=== PATIENT | female | born 1985 | race Caucasian/White ===

== ENCOUNTER → 2017-06-07 | Outpatient (CLI) | payer BC ==
[2017-06-07 12:56] LABS: PREG INTERNAL NEGATIVE QC NEG CLEAR BACKGROUND; PREG INTERNAL POSITIVE QC POS CONTROL LINE
[2017-06-07 13:03] LABS: HEMATOCRIT 34.5 % (37-47); MEAN CELL VOLUME 85.4 fL (80-100); MEAN CORPUSCULAR HEMOGLOBIN 28.5 pg (25-34); MEAN CORPUSCULAR HGB CONC 33.3 g/dl (32-36); MEAN PLATELET VOLUME 9.6 fL (7.4-10.4); PLATELET COUNT 336 K/uL (130-400); RED BLOOD COUNT 4.04 M/uL (4.2-5.4); WHITE BLOOD COUNT 10.27 K/uL (4.8-10.8)
[2017-06-07 13:24] LABS: ALT/SGPT 15 U/L (12-78); AST/SGOT 10 U/L (15-37); BLOOD UREA NITROGEN 12 mg/dl (7-18); BUN/CREATININE RATIO 18.2 (10-20); CALCIUM 9.1 mg/dl (8.5-10.1); CARBON DIOXIDE 23 mmol/L (21-32); CHLORIDE 107 mmol/L (98-107); CREATININE 0.66 mg/dl (0.60-1.20); GLUCOSE 103 mg/dl (70-99); POTASSIUM 4.1 mmol/L (3.5-5.1); SODIUM 139 mmol/L (136-145)
[2017-06-07 13:28] LABS: ALB/GLOB RATIO 1.1 (0.9-2); ALKALINE PHOSPHATASE 48 U/L (45-117); C-REACTIVE PROTEIN 1.32 mg/dl (0-0.29); RHEUMATOID FACTOR < 10.0 U/mL (0-15)
[2017-06-07 14:33] LABS: LYME DISEASE AB IGG NEG (NEG); LYME DISEASE AB IGM NEG (NEG)
[2017-06-12 11:43] LABS: ANA TITER 1:40 TITER (<1:40)
== END | disposition home or self-care (01) ==
LOC: C.LABBFT 09:20
PROVIDERS: ATTEND Physician Assistant Medical
DX: M25.50 Pain in unspecified joint (principal)

== ENCOUNTER → 2017-06-10 | Outpatient (CLI) | payer BC ==
[2017-06-10 18:03] LABS: FERRITIN 40.3 ng/ml (8.0-388.0)
== END | disposition home or self-care (01) ==
LOC: C.LABBFT 15:18
PROVIDERS: ATTEND Physician Assistant Medical
DX: D64.9 Anemia, unspecified (principal)

== ENCOUNTER → 2017-06-18 | Outpatient (CLI) | payer BC ==
--- NOTE | 2017-06-18 10:03 | DIAGNOSTIC IMAGING REPORT ---
LEFT HAND 3 VIEWS CLINICAL HISTORY: Joint pain. FINDINGS: 3 views of left hand are obtained. No prior studies are available for comparison at the time of dictation. The skeletal structures are well mineralized. No fracture is seen. The joint spaces of the hand are well-maintained. No erosive change is seen. The overlying soft tissues are within normal limits. IMPRESSION: Unremarkable radiographic assessment of the left hand. Electronically signed by: Travis Perez M.D. 06/18/2017 10:01 AM Dictated Date/Time: 06/18/2017 10:00 AM
--- NOTE | 2017-06-18 10:03 | DIAGNOSTIC IMAGING REPORT ---
R HAND MIN 3 VIEWS ROUTINE CLINICAL HISTORY: Joint pain. COMPARISON: None FINDINGS: Alignment of the right hand is anatomic. No fracture or suspicious osseous lesion is present. Joint spaces are preserved. No erosions are identified on this exam. Carpal bones are intact. No soft tissue calcifications are present. IMPRESSION: 1. Unremarkable right hand radiographs. 2. No radiographic evidence of an erosive/inflammatory arthropathy. Electronically signed by: Sb Rivas M.D. 06/18/2017 10:01 AM Dictated Date/Time: 06/18/2017 10:01 AM
== END | disposition home or self-care (01) ==
LOC: C.RAD1850 09:37
PROVIDERS: ATTEND Internal Medicine Rheumatology
DX: M25.541 Pain in joints of right hand (principal); M25.542 Pain in joints of left hand

== ENCOUNTER → 2017-08-31 | Outpatient (CLI) | payer BC ==
[~2017-08-31] MED LIST: ADAL40KI SC; CALC625T13 PO; DROS1TAB21 PO; MULT-506 PO; PRLSR20 PO; SERT-234 PO; ZOLP5TAB6 PO
[2017-08-31 11:04] LABS: BASO % 0.3 %; BASO ABS # 0.03 K/uL (0-0.2); EOS % 1.8 %; EOS ABS # 0.19 K/uL (0-0.5); HEMATOCRIT 37.9 % (37-47); HEMOGLOBIN 12.6 g/dL (12.0-16.0); IG# 0.09 K/uL (0.00-0.02); LYMPH % 39.4 %; LYMPH ABS # 4.09 K/uL (1.2-3.4); MEAN CELL VOLUME 85.7 fL (80-100); MEAN CORPUSCULAR HEMOGLOBIN 28.5 pg (25-34); MEAN CORPUSCULAR HGB CONC 33.2 g/dl (32-36); MEAN PLATELET VOLUME 9.7 fL (7.4-10.4); MONO % 4.1 %; MONO ABS # 0.43 K/uL (0.11-0.59); NEUT % 53.5 %; NEUT ABS # 5.56 K/uL (1.4-6.5); PLATELET COUNT 307 K/uL (130-400); RED CELL DISTRIBUTION WIDTH CV 14.1 % (11.5-14.5); WHITE BLOOD COUNT 10.39 K/uL (4.8-10.8)
[2017-08-31 11:17] LABS: ALBUMIN 3.8 gm/dl (3.4-5.0); ALT/SGPT 14 U/L (12-78); AST/SGOT 10 U/L (15-37)
[2017-08-31 11:20] LABS: ALKALINE PHOSPHATASE 49 U/L (45-117); TOTAL PROTEIN 7.3 gm/dl (6.4-8.2)
== END | disposition home or self-care (01) ==
LOC: C.LABBC 09:29
PROVIDERS: ATTEND Internal Medicine Rheumatology
DX: K21.9 Gastro-esophageal reflux disease without esophagitis (principal); M06.4 Inflammatory polyarthropathy; Z79.52 Long term (current) use of systemic steroids; Z79.899 Other long term (current) drug therapy

== ENCOUNTER → 2018-03-31 | Day surgery (SDC) | payer OTHER ==
[2018-03-27 15:55] VITALS: Ht 157.5 cm; Wt 50.5 kg
[~2018-03-31] VITALS: Ht 157.5 cm; Wt 50.5 kg
[~2018-03-31] MED LIST changes: +LIDOCAINE HCL 2% 2 ML VIAL (20MG/ML) ONE; +PROPOFOL IV EMULSION 10 MG/ML 20 ML VIAL ONE; +SODIUM CHLORIDE 0.9% 500ML 500 ML IV ONE
--- NOTE | 2018-03-31 11:38 | Endo History and Physical ---
History & Physical Date of Service: Mar 31, 2018. Chief Complaint: Dysphagia Referring Physician: Laila Rivas History of Present Illness 32 yo CF who presents for EGD secondary to dysphagia. Past Surgical History Hx Cardiac Surgery: No Hx Internal Defibrillator: No Hx Pacemaker: No Hx Abdominal Surgery: Yes (APPY) Hx of Implantable Prosthesis: No Hx Post-Op Nausea and Vomiting: No Hx Cancer Surgery: No Hx Thoracic Surgery: No Hx Orthopedic: No Hx Urinary Tract Surgery: No Family History None Social History Smoking Status: Never Smoker Hx Substance Use: No Hx Alcohol Use: Yes (SOCIALLY) Allergies Coded Allergies: Penicillins (Verified Allergy, Intermediate, RASH, 03/27/18) Current Medications Reported Home Medications Medications Dose Route/Sig Max Daily Dose Days Date Category Zolpidem Tartrate 5 Mg Tab 1 Tab PO HS PRN 03/27/18 Reported Zoloft (Sertraline HCl) 100 Mg Tab 100 Mg PO QAM 03/27/18 Reported Prilosec (Omeprazole) 20 Mg Capcr 20 Mg PO DAILY 03/27/18 Reported Multivitamin (Multivitamins) Tab 1 Tab PO DAILY 03/27/18 Reported Humira Pen (Adalimumab) 40 Mg/0.8 Ml Kit 40 Mg SC EVERY OTHER WEEK 03/27/18 Reported Gianvi (Drospirenone-Ethinyl Estradiol) 1 Tab Tab 1 Tab PO DAILY 03/27/18 Reported Fiber Tabs (Calcium Polycarbophil) 625 Mg Tab 1 Tab PO DAILY 03/27/18 Reported Vital Signs Weight (Kilograms): 50.45 Height (Feet): 5 Height (Inches): 2 Date Time Temp Pulse Resp B/P (MAP) Pulse Ox O2 Delivery O2 Flow Rate FiO2 03/31/18 11:15 37.1 113 20 117/98 (104) 99 Room Air Physical Exam General Appearance: WD/WN, no apparent distress Respiratory/Chest: Auscultation: breath sounds normal Cardiovascular: Heart Auscultation: RRR Abdomen: Bowel Sounds: normal Inspection & Palpation: soft, non-distended, no tenderness, guarding & rebound Assessment and Plan Assessment: 32 yo CF who presents for EGD secondary to dysphagia. Plan: Proceed with EGD.
--- NOTE | 2018-03-31 12:11 | Discharge Instructions ---
Endoscopy Patient Instructions Date / Procedure(s) Performed Mar 31, 2018. EGD Allergy Information Coded Allergies: Penicillins (Verified Allergy, Intermediate, RASH, 03/27/18) Discharge Date / Findings Mar 31, 2018. Gastric ulcers s/p biopsy Mid-esophageal biopsies Esophageal stenosis s/p dilation Medication Instructions 1) Increase Omeprazole to 20mg by mouth twice daily 2) OK to resume all medications today as prescribed Reported Home Medications Medications Dose Route/Sig Max Daily Dose Days Date Category Zolpidem Tartrate 5 Mg Tab 1 Tab PO HS PRN 03/27/18 Reported Zoloft (Sertraline HCl) 100 Mg Tab 100 Mg PO QAM 03/27/18 Reported Prilosec (Omeprazole) 20 Mg Capcr 20 Mg PO DAILY 03/27/18 Reported Multivitamin (Multivitamins) Tab 1 Tab PO DAILY 03/27/18 Reported Humira Pen (Adalimumab) 40 Mg/0.8 Ml Kit 40 Mg SC EVERY OTHER WEEK 03/27/18 Reported Gianvi (Drospirenone-Ethinyl Estradiol) 1 Tab Tab 1 Tab PO DAILY 03/27/18 Reported Fiber Tabs (Calcium Polycarbophil) 625 Mg Tab 1 Tab PO DAILY 03/27/18 Reported Provider Instructions Activity Restrictions - No exercising or heavy lifting for 24 hours. - Do not drink alcohol the day of the procedure. - Do not drive a car or operate machinery until the day after the procedure. - Do not make any important decisions or sign important papers in 24 hours after the procedure. Following Day: - Return to full activity which may include returning to work/school. Diet Start your diet with liquids and light foods (jello, soup, juice, toast). Then eat your usual diet if not nauseated. Treatment For Common After Affects For mild abdominal pain, bloating, or excessive gas: - Rest - Eat lightly - Lie on right side Follow-Up Information Follow-up with Laila Rivas as scheduled Anesthesia Information What You Should Know You have had a procedure that required some medicine to reduce anxiety and discomfort. This treatment is called moderate sedation. After receiving the treatment, you may be sleepy, but you will be able to breathe on your own. The effects of the treatment may last for several hours. Follow these instructions along with Activity/Diet recommendations noted above: * Do NOT do anything where dizziness or clumsiness would be dangerous. * Rest quietly at home today, then you can be up and about tomorrow. * Have a responsible person stay with you the rest of today. * You may have had an I.V. today. If so, you may take the dressing off later today. Recommendations Call your doctor if: * Trouble breathing * Continuous vomiting for more than 24 hours * Temperature above 101 degrees * Severe abdominal pain or bloating * Pain not relieved by pain medicine ordered * There is increased drainage or redness from any incision * A large amount of rectal bleeding greater than 2-3 tablespoons. (If you had a polyp/s removed or have hemorrhoids, a small amount of blood - from the rectum is to be expected.) * You have any unanswered questions or concerns. IN THE EVENT OF A SERIOUS EMERGENCY, GO TO THE NEAREST EMERGENCY ROOM Your discharge instructions were prepared by provider Lb Nascimento. Patient Instructions Signature Page Angel Amanda Patient (or Guardian) Signature/Date: I have read and understand the instructions given to me by my caregivers. Caregiver/RN/Doctor Signature/Date: The above-named patient and/or guardian has received patient instructions on this date. + Original Patient Signature Page (only) stays with chart. Please make copy for patient.
[2018-03-31 12:32] VITALS: BP 123/91; PULSE 78; O2SAT 100
--- NOTE | 2018-03-31 13:05 | GI REPORT ---
Patient Name: Angel Amanda Procedure Date: 03/31/2018 11:42 AM Date of : 1985 Admit Type: Outpatient Age: 32 Gender: Female Attending MD: Lb Nascimento DO Procedure: Upper GI endoscopy Providers: Lb Nascimento DO Referring MD: Carol Martinez Indications: Dysphagia Medicines: Monitored Anesthesia Care Complications: No immediate complications. Estimated Blood Loss: Estimated blood loss: none. Procedure: Pre-Anesthesia Assessment: - Prior to the procedure, a History and Physical was performed, and patient medications and allergies were reviewed. The patient's tolerance of previous anesthesia was also reviewed. The risks and benefits of the procedure and the sedation options and risks were discussed with the patient. All questions were answered, and informed consent was obtained. Prior Anticoagulants: The patient has taken no previous anticoagulant or antiplatelet agents. ASA Grade Assessment: II - A patient with mild systemic disease. After reviewing the risks and benefits, the patient was deemed in satisfactory condition to undergo the procedure. After obtaining informed consent, the endoscope was passed under direct vision. Throughout the procedure, the patient's blood pressure, pulse, and oxygen saturations were monitored continuously. The scope was introduced through the mouth, and advanced to the second part of duodenum. The upper GI endoscopy was accomplished without difficulty. The patient tolerated the procedure well. Findings: Moderately severe esophagitis with no bleeding was found. Biopsies were taken with a cold forceps for histology in the mid-esophagus to evaluate for Eosinophilic esophagitis. One benign-appearing, intrinsic stenosis was found 36 cm from the incisors. This stenosis was moderately severe and measured 1.4 cm (inner diameter) x 1 cm (in length). The stenosis was traversed. A TTS dilator was passed through the scope. Dilation with an 18-19-20 mm balloon dilator was performed to 18 mm. Three non-bleeding cratered gastric ulcers with no stigmata of bleeding were found in the gastric antrum. The largest lesion was 4 mm in largest dimension. Biopsies were taken with a cold forceps for Helicobacter pylori testing. The examined duodenum was normal. Impression: - Moderately severe reflux esophagitis. Biopsied. - Benign-appearing esophageal stenosis. Dilated. - Non-bleeding gastric ulcers with no stigmata of bleeding. Biopsied. - Normal examined duodenum. Recommendation: - Resume previous diet. - Use Prilosec (omeprazole) 20 mg PO BID. - Await pathology results. - Return to primary care physician as previously scheduled. Lb Nascimento, DO 03/31/2018 1:05:09 PM This report has been signed electronically. Note Initiated On: 03/31/2018 11:42 AM Number of Addenda: 0 I attest to the content of the Intraoperative Record and orders documented therein, exceptions below {[id number]}
--- NOTE | 2018-03-31 14:26 | Anesthesiology Progress Note ---
Anesthesia Post Op Note Date & Time Mar 31, 2018 at 14:26 Vital Signs Pain Intensity: 0 Vital Signs Past 12 Hours Date Time Temp Pulse Resp B/P (MAP) Pulse Ox O2 Delivery O2 Flow Rate FiO2 03/31/18 12:32 78 18 123/91 (102) 100 Room Air 03/31/18 12:17 80 18 115/84 (94) 100 Room Air 03/31/18 12:02 97 16 107/65 (79) 98 Room Air 03/31/18 11:15 37.1 113 20 117/98 (104) 99 Room Air Notes Mental Status: alert / awake / arousable, participated in evaluation Pt Amnestic to Procedure: Yes Nausea / Vomiting: adequately controlled Pain: adequately controlled Airway Patency, RR, SpO2: stable & adequate BP & HR: stable & adequate Hydration State: stable & adequate Anesthetic Complications: no major complications apparent
== END | disposition home or self-care (01) ==
LOC: C.GI 10:44
PROVIDERS: ATTEND Internal Medicine
DX: R13.10 Dysphagia, unspecified (principal); K22.2 Esophageal obstruction; K25.9 Gastric ulcer, unspecified as acute or chronic, without hemorrhage or perforation; K21.9 Gastro-esophageal reflux disease without esophagitis; M06.9 Rheumatoid arthritis, unspecified; F41.9 Anxiety disorder, unspecified; Z88.0 Allergy status to penicillin; Z79.899 Other long term (current) drug therapy

== ENCOUNTER 2023-02-28 13:15 | Inpatient (IN) ==
[2023-02-28] MEDS ORDERED: SODIUM CHLORIDE 0.9% 1000ML 1,000 ML IV STA (13:26)
[2023-02-28] MEDS ORDERED: MoRPHine SULFATE 2 MG/ML CARP IV PRN (13:47)
[2023-02-28] MEDS ORDERED: MoRPHine SULFATE 2 MG/ML CARP IV STA (13:47)
--- NOTE | 2023-02-28 14:04 | Emergency Department Note ---
ED Provider Note History of Present Illness Chief Complaint: Flu Like Symptoms Stated Complaint: STOMACH BUG,VOMITING,NAUSEA, Time Seen by Provider: 02/28/23 13:24 This is a 37-year-old female with a history of eosinophilic esophagitis, r heumatoid arthritis, accompanied by her , who presents to the emergency department with vomiting initially, central back pain, persistent diarrhea, fever, concern for dehydration, and pain in her upper abdomen. 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 She started vomiting initially and then developed diarrhea. Yesterday she had a temperature of 101 and she also felt like she had a fever this morning. Her diarrhea is green, no blood, she is probably having 20 episodes per day. She was initially having some diffuse abdominal pain but this has become more constant in the epigastric and right upper quadrant. She tried taking her pantoprazole and Carafate but did not have much relief. She tried to eat some food last night and developed severe abdominal pain in this region. She visited a local urgent care yesterday who prescribed her some Zofran which helped with the vomiting (has not had any vomiting today) but the diarrhea and abdominal pain persists. She traveled to [place] last week, no out of the country travel. Denies any sick contacts. Does not have any dysuria, hematuria, frequency, urgency. Does have a history of a kidney infection in the past which was on her mind today. Denies any upper respiratory symptoms, tested negative for COVID and flu at urgent care yesterday. History of appendectomy and . Still has her gallbladder. Her father had a cholecystectomy in the past. Generally takes Enbrel for rheumatoid arthritis, did not take it this week. Last menstrual period was 2 weeks ago. Tested negative for yesterday at urgent [facility] Medications Medication Instructions Recorded Confirmed Type multivitamin 1 tab PO QPM 06/11/18 02/28/23 History etanercept 25 mg (1 mL) 50 mg subcut .Thursdays02/23/20 02/28/23 History subcutaneous powder for solution (Enbrel) rizatriptan 10 mg disintegrating 10 mg PO Q2H PRN migraine headache 09/16/20 02/28/23 Rx tablet (Maxalt-PCT) #9 tabs omeprazole 20 mg capsule,delayed 20 mg PO BID #180 caps 05/01/22 02/28/23 Rx release sucralfate 1 gram tablet 1 g PO QID PRN STOMACH IRRITATION 07/13/22 02/28/23 History famotidine 20 mg tablet 20 mg PO BID #180 tabs 10/25/22 02/28/23 Rx miscellaneous medical supply #60 doses 11/19/22 01/08/23 Rx budesonide 9 mg capsule,extended 0 mg PO BID 01/01/23 02/28/23 History release drospirenone 3 mg-ethinyl 1 tab PO QPM 01/01/23 02/28/23 History estradiol 0.02 mg tablet lorazepam 0.5 mg tablet 0.5 - 1 mg PO UD PRN FLIGHT ANXIETY 01/01/23 02/28/23 History sertraline 100 mg tablet 150 mg PO QAM 01/01/23 02/28/23 History trazodone 50 mg tablet 50 - 100 mg PO HS PRN Sleep 01/01/23 02/28/23 History Allergies Allergy/AdvReac Type Severity Reaction Status Date / Time nickel Allergy Unknown Rash Verified 02/28/23 17:15 Past Med/Surg History Medical History Anxiety Chronic migraine Eosinophilic esophagitis Esophageal stricture GERD (gastroesophageal reflux disease) History of COVID-19 04/2022- FEVER, COUGH, RUNNY NOSE, JOINT PAIN, BACK PAIN, NO HOSPITALIZATION, NO CURRENT ISSUES HLA B27 (HLA B27 positive) Hx of gastric ulcer Seronegative polyarthritis Surgical History Family history of reaction to anesthesia MOTHER-NAUSEA History of appendectomy History of section X 1 History of colonoscopy History of esophagogastroduodenoscopy (EGD) History of tooth extraction wisdom teeth Family History Aunt Skin cancer Uncle Skin cancer Father Eosinophilic esophagitis Other Family history of diabetes mellitus in father Denies family history of Ovarian cancer Prostate cancer Myocardial infarction Breast cancer Colorectal cancer Social History Smoking Status: Never smoker Second Hand Exposure: No; Do You Dip or Chew Tobacco: No; Tobacco Cessation Education Requested by Patient: No Hx Alcohol Use: Yes Alcohol type: wine Hx Substance Use: No Preferred Language: Honduran Communication Ability: Effective Visual Impairment: No Limitations Hearing Ability: Normal 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 Shift Required: No Beliefs That Will Affect Care: None marital status: Current Living Situation: Spouse and Family Current Living Situation Comment: and children current occupational status: employed 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 Other Information That Helps Us Care for You: No Feels Safe at Home: Yes Safety Concerns: Feels Safe At This Time Childhood Exposure to Second-Hand Smoke: No Diet: regular caffeine: Yes Dental Care, Regularly: Yes Physical Activity Frequency: 3-4 Times per Week Seatbelt Use: always Sunscreen Use: Yes Assistive Devices: None Physical Exam Vital Signs Vital Signs - 24 hr 02/28/23 13:19 02/28/23 14:16 02/28/23 15:52 Temperature 97.2 F L Temperature Source Temporal Artery Scan Pulse Rate 119 H Pulse Rate [Apical] 100 H Pulse Rhythm Regular Respiratory Rate 18 18 18 Respiratory Effort / Characteristics Non-Labored Respiratory Depth Normal Blood Pressure 141/92 H Blood Pressure [Right Arm] 125/87 Blood Pressure Mean 108 Blood Pressure Mean [Right Arm] 99 Pulse Oximetry 98 98 100 Oxygen Delivery Method Room Air Room Air Sepsis Recent Fever Within 48 Hours No Sepsis New/Unexplained Change in Mental Status N/A Sepsis Action Taken by Nursing No Action Required 02/28/23 16:06 Temperature Temperature Source Pulse Rate 96 H Pulse Rate [Apical] Pulse Rhythm Respiratory Rate Respiratory Effort / Characteristics Respiratory Depth Blood Pressure Blood Pressure [Right Arm] Blood Pressure Mean Blood Pressure Mean [Right Arm] Pulse Oximetry Oxygen Delivery Method Sepsis Recent Fever Within 48 Hours Sepsis New/Unexplained Change in Mental Status Sepsis Action Taken by Nursing CONSTITUTIONAL: Well developed, well nourished, mildly uncomfortable, nontoxic, otherwise pleasant HEAD: Normocephalic, atraumatic. EYES: conjunctivae normal, extraocular muscles intact. No scleral icterus ENMT: External ears normal. Nose with normal external appearance, no congestion. Oral mucous membranes somewhat dry. Oropharynx normal. NECK: Full active range of motion. LYMPHATIC: No cervical adenopathy RESPIRATORY: Breathing unlabored and symmetric. Lungs clear to auscultation bilaterally. No wheeze, rales, or rhonchi. CARDIOVASCULAR: Tachycardic rate and regular rhythm. No murmurs, rubs, or gallops. ABDOMEN: Hyperactive bowel sounds. Abdomen is soft. There is some tenderness to light touch in the right upper quadrant. There is tenderness in the epigastric, right upper quadrant, and right lower quadrants with deeper p alpation. Positive Patino sign. No CVA tenderness bilaterally. MUSCULOSKELETAL: Moves all extremities at all joints without pain or difficulty. No cyanosis or edema SKIN: [place], warm, dry. No rash, no jaundice NEUROLOGIC: Awake, alert, oriented. Gaze is conjugate. Face symmetric, speech normal. Moves head and all four extremities spontaneously. PSYCHIATRIC: Appropriate. Normal affect Course Administered Medications Lactated Ringer's (Lr) 1,000 mls @ 125 mls/hr IV .Q8H SUZANNE Stop: 03/30/23 19:59 Last Admin: 02/28/23 21:36 Dose: 125 mls/hr Documented By: EKF Acetaminophen (Ofirmev) 1,000 mg in 100 mls @ 400 mls/hr IV Q8H PRN PRN Reason: Pain Stop: 03/03/23 19:55 Last Infusion: 02/28/23 21:51 Dose: 0 mls/hr Documented By: Admin: 02/28/23 21:36 Dose: 400 mls/hr Documented By: EKF Miscellaneous (Budesonide~Order Awaiting Action) 1 each N/A QS SUZANNE Stop: 03/30/23 21:44 Last Admin: 02/28/23 21:44 Dose: Not Given Documented By: EKF Miscellaneous (Oral Contraceptive~Order Awaiting Action) 1 each N/A QS SUZANNE Stop: 03/30/23 21:44 Last Admin: 02/28/23 21:44 Dose: Not Given Documented By: EKF Miscellaneous (Enbrel~Order Awaiting Action) 1 each N/A QS SUZANNE Stop: 03/30/23 21:59 Last Admin: 02/28/23 23:06 Dose: Not Given Documented By: Admin: 02/28/23 22:03 Dose: Not Given Documented By: EKF Morphine Sulfate (Morphine Sulfate 2 Mg/Ml Carp) 2 mg IV NOW PRN PRN Reason: Pain Stop: 03/14/23 13:46 Last Admin: 02/28/23 17:26 Dose: 2 mg Documented By: Discontinued Medications Sodium Chloride (Nss 1000ml) 1,000 mls @ 999 mls/hr IV .Q1H1M STA Stop: 02/28/23 14:26 Last Infusion: 02/28/23 15:08 Dose: 0 mls/hr Documented By: Admin: 02/28/23 14:06 Dose: 999 mls/hr Documented By: GEOVANI Sodium Chloride (Nss 1000ml) 1,000 mls @ 999 mls/hr IV .Q1H1M ONE Stop: 02/28/23 17:05 Last Infusion: 02/28/23 17:54 Dose: 0 mls/hr Documented By: Admin: 02/28/23 16:42 Dose: 999 mls/hr Documented By: Ceftriaxone Sodium (Rocephin) 2,000 mg in 70 mls @ 140 mls/hr IV NOW STA Stop: 02/28/23 20:02 Last Infusion: 02/28/23 20:16 Dose: 0 mls/hr Documented By: Admin: 02/28/23 19:45 Dose: 140 mls/hr Documented By: AARON Ioversol (Optiray 320 100ml) 92 ml IV ONCE ONE Stop: 02/28/23 15:38 Last Admin: 02/28/23 15:38 Dose: 92 ml Documented By: SHIRIN Morphine Sulfate (Morphine Sulfate 2 Mg/Ml Carp) 2 mg IV NOW STA Stop: 02/28/23 13:48 Last Admin: 02/28/23 14:06 Dose: 2 mg Documented By: GEOVANI Medical Decision Making Differential Diagnosis Cholecystitis, cholelithiasis, choledocholithiasis, pancreatitis, gastric ulcer, gastritis, perforation, , gastroenteritis, diverticulitis, small bowel obstruction, mesenteric adenitis, C. difficile, dehydration, electrolyte imbalance, UTI, pyelonephritis, among other pathology Medical Records Attestation: I reviewed the patient's medical records. Laboratory Data 02/28/23 14:05 02/28/23 14:05 Lab Results 02/28/23 02/28/23 02/28/23 Range/Units 14:00 14:05 14:05 WBC 4.90 (4.8-10.8) K/ul RBC 4.85 (4.20-5.40) M/uL Hgb 13.7 (12.0-16.0) g/dl Hct 40.8 (37.0-47.0) % MCV 84.1 (80.0-100.0) fL MCH 28.2 (25.0-34.0) pg MCHC 33.6 (32.0-36.0) g/dL RDW Std Deviation 42.4 (36.4-46.3) fL RDW Coeff of Ravinder 13.7 (11.5-14.5) % Plt Count 198 (130-400) K/uL MPV 9.7 (9.4-12.4) fL Immature Gran % (Auto) 0.4 % Neut % (Auto) 52.1 % Lymph % (Auto) 34.7 % Garvin % (Auto) 10.2 % Eos % (Auto) 2.4 % Baso % (Auto) 0.2 % Neut # (Auto) 2.55 (1.40-6.50) K/uL Lymph # (Auto) 1.70 (1.2-3.4) K/uL Garvin # (Auto) 0.50 (0.11-0.59) K/uL Eos # (Auto) 0.12 (0-0.50) K/uL Baso # (Auto) 0.01 (0-0.2) K/uL Immature Gran # (Auto) 0.02 (0.01-0.20) K/uL Sodium 133 L (136-145) mmol/L Potassium 3.5 (3.5-5.1) mmol/L Chloride 103 (98-107) mmol/L Carbon Dioxide 19 L (21-32) mmol/L Anion Gap 11 (3-11) BUN 10 (6-23) mg/dl Creatinine 0.76 (0.6-1.2) mg/dl Est Cr Clr Drug Dosing 81.7 ml/min Est GFR ( Amer) 117.8 ml/min Est GFR (Non-Af Amer) 101.6 ml/min BUN/Creatinine Ratio 13.2 (10-20) Glucose 99 (70-99(Fasting)) mg/dl Calcium 8.9 (8.6-10.3) mg/dl Total Bilirubin 0.3 (0.2-1.0) mg/dl AST 17 (13-39) U/L ALT 11 (7-52) U/L Alkaline Phosphatase 51 (34-104) U/L Total Protein 8.0 (6.0-8.3) gm/dl Albumin 4.1 (3.4-5.0) gm/dl Globulin 3.9 (2.5-4.0) gm/dl Albumin/Globulin Ratio 1.1 (0.9-2) Lipase 9 L (11-82) U/L Urine Color Yellow Urine Appearance Clear (Clear) Urine pH 6.5 (4.5-7.5) Ur Specific [place] 1.008 (1.000-1.030) Urine Protein Negative (Negative) Urine Glucose (UA) Negative (Negative) Urine Ketones Trace H (Negative) Urine Blood Negative (Negative) Urine Nitrite Negative (Negative) Urine Bilirubin Negative (Negative) Urine Urobilinogen Negative (Negative) Ur Leukocyte Esterase Negative (Negative) POC Ur Test Stl C. cayetanensis PCR (NotDetected) Stool Rotavirus A PCR (NotDetected) Stl Adenov F 40/41 PCR (NotDetected) Stool Astrovirus (PCR) (NotDetected) Stool Campylobacter PCR (NotDetected) Stl C. diff Tox B Gene (Neg) Stool Cryptosporidium PCR (NotDetected) Stl E.coli Shiga Tox PCR (NotDetected) Stl Enterotoxigenic E PCR (NotDetected) Stool EPEC (PCR) (NotDetected) Stool EAEC (PCR) (NotDetected) Stl E. histolytica PCR (NotDetected) Stool Giardia Lamblia PCR (NotDetected) Stool Salmonella PCR (NotDetected) Stool Sapovirus (PCR) (NotDetected) Stl P. shigelloides PCR (NotDetected) Stl Shigella/EIEC PCR (NotDetected) St Y.enterocolitica PCR (NotDetected) Stool Vibrio (PCR) (NotDetected) Stl Vibrio cholerae PCR (NotDetected) Stl Norovirus GI/GII PCR (NotDetected) SARS-CoV-2, RNA, NAAT (NEGATIVE) 02/28/23 02/28/23 02/28/23 Range/Units 14:05 14:55 14:55 WBC (4.8-10.8) K/ul RBC (4.20-5.40) M/uL Hgb (12.0-16.0) g/dl Hct (37.0-47.0) % MCV (80.0-100.0) fL MCH (25.0-34.0) pg MCHC (32.0-36.0) g/dL RDW Std Deviation (36.4-46.3) fL RDW Coeff of Ravinder (11.5-14.5) % Plt Count (130-400) K/uL MPV (9.4-12.4) fL Immature Gran % (Auto) % Neut % (Auto) % Lymph % (Auto) % Garvin % (Auto) % Eos % (Auto) % Baso % (Auto) % Neut # (Auto) (1.40-6.50) K/uL Lymph # (Auto) (1.2-3.4) K/uL Garvin # (Auto) (0.11-0.59) K/uL Eos # (Auto) (0-0.50) K/uL Baso # (Auto) (0-0.2) K/uL Immature Gran # (Auto) (0.01-0.20) K/uL Sodium (136-145) mmol/L Potassium (3.5-5.1) mmol/L Chloride (98-107) mmol/L Carbon Dioxide (21-32) mmol/L Anion Gap (3-11) BUN (6-23) mg/dl Creatinine (0.6-1.2) mg/dl Est Cr Clr Drug Dosing ml/min Est GFR ( Amer) ml/min Est GFR (Non-Af Amer) ml/min BUN/Creatinine Ratio (10-20) Glucose (70-99(Fasting)) mg/dl Calcium (8.6-10.3) mg/dl Total Bilirubin (0.2-1.0) mg/dl AST (13-39) U/L ALT (7-52) U/L Alkaline Phosphatase (34-104) U/L Total Protein (6.0-8.3) gm/dl Albumin (3.4-5.0) gm/dl Globulin (2.5-4.0) gm/dl Albumin/Globulin Ratio (0.9-2) Lipase (11-82) U/L Urine Color Urine Appearance (Clear) Urine pH (4.5-7.5) Ur Specific [place] (1.000-1.030) Urine Protein (Negative) Urine Glucose (UA) (Negative) Urine Ketones (Negative) Urine Blood (Negative) Urine Nitrite (Negative) Urine Bilirubin (Negative) Urine Urobilinogen (Negative) Ur Leukocyte Esterase (Negative) POC Ur Test Cancelled Stl C. cayetanensis PCR Not Detected (NotDetected) Stool Rotavirus A PCR Not Detected (NotDetected) Stl Adenov F 40/41 PCR Not Detected (NotDetected) Stool Astrovirus (PCR) DETECTED A* (NotDetected) Stool Campylobacter PCR Not Detected (NotDetected) Stl C. diff Tox B Gene Negative Cdiff Gene (Neg) Stool Cryptosporidium PCR Not Detected (NotDetected) Stl E.coli Shiga Tox PCR Not Detected (NotDetected) Stl Enterotoxigenic E PCR Not Detected (NotDetected) Stool EPEC (PCR) Not Detected (NotDetected) Stool EAEC (PCR) Not Detected (NotDetected) Stl E. histolytica PCR Not Detected (NotDetected) Stool Giardia Lamblia PCR Not Detected (NotDetected) Stool Salmonella PCR Not Detected (NotDetected) Stool Sapovirus (PCR) Not Detected (NotDetected) Stl P. shigelloides PCR Not Detected (NotDetected) Stl Shigella/EIEC PCR Not Detected (NotDetected) St Y.enterocolitica PCR Not Detected (NotDetected) Stool Vibrio (PCR) Not Detected (NotDetected) Stl Vibrio cholerae PCR Not Detected (NotDetected) Stl Norovirus GI/GII PCR Not Detected (NotDetected) SARS-CoV-2, RNA, NAAT (NEGATIVE) 02/28/23 Range/Units 19:45 WBC (4.8-10.8) K/ul RBC (4.20-5.40) M/uL Hgb (12.0-16.0) g/dl Hct (37.0-47.0) % MCV (80.0-100.0) fL MCH (25.0-34.0) pg MCHC (32.0-36.0) g/dL RDW Std Deviation (36.4-46.3) fL RDW Coeff of Ravinder (11.5-14.5) % Plt Count (130-400) K/uL MPV (9.4-12.4) fL Immature Gran % (Auto) % Neut % (Auto) % Lymph % (Auto) % [place] % (Auto) % Eos % (Auto) % Baso % (Auto) % Neut # (Auto) (1.40-6.50) K/uL Lymph # (Auto) (1.2-3.4) K/uL [place]vin # (Auto) (0.11-0.59) K/uL Eos # (Auto) (0-0.50) K/uL Baso # (Auto) (0-0.2) K/uL Immature Gran # (Auto) (0.01-0.20) K/uL Sodium (136-145) mmol/L Potassium (3.5-5.1) mmol/L Chloride (98-107) mmol/L Carbon Dioxide (21-32) mmol/L Anion Gap (3-11) BUN (6-23) mg/dl Creatinine (0.6-1.2) mg/dl Est Cr Clr Drug Dosing ml/min Est GFR ( Amer) ml/min Est GFR (Non-Af Amer) ml/min BUN/Creatinine Ratio (10-20) Glucose (70-99(Fasting)) mg/dl Calcium (8.6-10.3) mg/dl Total Bilirubin (0.2-1.0) mg/dl AST (13-39) U/L ALT (7-52) U/L Alkaline Phosphatase (34-104) U/L Total Protein (6.0-8.3) gm/dl Albumin (3.4-5.0) gm/dl Globulin (2.5-4.0) gm/dl Albumin/Globulin Ratio (0.9-2) Lipase (11-82) U/L Urine Color Urine Appearance (Clear) Urine pH (4.5-7.5) Ur Specific [place] (1.000-1.030) Urine Protein (Negative) Urine Glucose (UA) (Negative) Urine Ketones (Negative) Urine Blood (Negative) Urine Nitrite (Negative) Urine Bilirubin (Negative) Urine Urobilinogen (Negative) Ur Leukocyte Esterase (Negative) POC Ur Test Stl C. cayetanensis PCR (NotDetected) Stool Rotavirus A PCR (NotDetected) Stl Adenov F 40/41 PCR (NotDetected) Stool Astrovirus (PCR) (NotDetected) Stool Campylobacter PCR (NotDetected) Stl C. diff Tox B Gene (Neg) Stool Cryptosporidium PCR (NotDetected) Stl E.coli Shiga Tox PCR (NotDetected) Stl Enterotoxigenic E PCR (NotDetected) Stool EPEC (PCR) (NotDetected) Stool EAEC (PCR) (NotDetected) Stl E. histolytica PCR (NotDetected) Stool Giardia Lamblia PCR (NotDetected) Stool Salmonella PCR (NotDetected) Stool Sapovirus (PCR) (NotDetected) Stl P. shigelloides PCR (NotDetected) Stl Shigella/EIEC PCR (NotDetected) St Y.enterocolitica PCR (NotDetected) Stool Vibrio (PCR) (NotDetected) Stl Vibrio cholerae PCR (NotDetected) Stl Norovirus GI/GII PCR (NotDetected) SARS-CoV-2, RNA, NAAT NEGATIVE (NEGATIVE) Imaging Data Radiologist's Impression: Abdomen/Pelvis CT 02/28/23 13:47 CT SCAN OF THE ABDOMEN AND PELVIS WITH IV CONTRAST CLINICAL HISTORY: Vomiting and diarrhea. Right-sided abdominal pain. COMPARISON STUDY: No priors. TECHNIQUE: Following the IV administration of 92 cc of Optiray 320, CT scan of the abdomen and pelvis is performed from the lung bases to the proximal femora. Images are reviewed in the axial, sagittal, and coronal planes. IV contrast was administered without complication. A dose lowering technique was utilized adhering to the principles of ALARA. CT DOSE: 423.89 mGy.cm FINDINGS: Lung bases: The heart is normal in size and without pericardial effusion. The lung bases are clear. Liver: The contrast-enhanced liver is normal in size, contour, and attenuation. There is no intrahepatic biliary ductal dilatation. The hepatic veins and portal veins are patent. Gallbladder: Gallbladder is markedly distended. There is no CT evidence of gallbladder wall thickening or surrounding inflammation.. Spleen: Normal in size and attenuation. Pancreas: Unremarkable. Adrenal glands: Unremarkable. Kidneys: The contrast enhanced kidneys are normal in size and without hydronephrosis. The kidneys enhance symmetrically. Foci of cortical scarring are seen throughout the right kidney. A punctate nonobstructing calculus is seen on the right. Abdominal vasculature: The abdominal aorta is normal in course and caliber. Bowel: Liquid stool seen throughout the colon, and the colonic mucosa appears mildly thickened and hyperemic. This is greatest in the rectosigmoid. No bowel obstruction is seen. The appendix is not identified and reported surgically absent. Peritoneum: There is no intraperitoneal free air or abdominal ascites. There is a small fat-containing umbilical hernia. Lymphadenopathy: None. Pelvic viscera: The bladder is distended but otherwise normal in appearance. The uterus and adnexa are normal as visualized. Skeletal structures: No lytic or blastic lesions are seen. There are bilateral pars defects at L5. IMPRESSION: 1. Findings suggest a nonspecific proctocolitis. Correlate clinically. 2. The gallbladder is markedly distended. There is no CT evidence of gallbladder wall thickening or surrounding inflammation to confirm acute cholecystitis. Correlate with clinical and laboratory findings. Consider a right upper quadrant ultrasound for further assessment. 3. Left-sided nephrolithiasis. 4. Additional findings as above. ACT 112: Negative or not required by law. Electronically signed by: Travis Perez M.D. 02/28/2023 3:52 PM Gallbladder Ultrasound 02/28/23 16:08 US gallbladder CLINICAL HISTORY: diarrhea vomiting fever RUQ pain/+patino TECHNIQUE: Multiple real-time sonographic images of the right upper quadrant were obtained. Comparison: Comparison is made to CT abdomen pelvis 02/28/2023 FINDINGS: The liver is diffusely homogenous with normal contour and echogenicity. No focal mass lesions are seen. No intrahepatic ductal dilatation is seen. Gallbladder is distended with sludge. The gallbladder wall measures 2 mm. Patino's sign cannot be assessed as the patient received pain medication. Patient reports mild tenderness over the gallbladder area. The common duct measures 0.3 cm in diameter at the level of the hepatic artery. The pancreas is not well visualized secondary to overlying bowel gas. The right kidney shows normal echogenicity, cortical thickness and renal contour. The right kidney shows no evidence of hydronephrosis or mass. IMPRESSION: No gallbladder wall thickening is seen despite distention with sludge. There is tenderness over the gallbladder although evaluation for Patino's sign is limited by pain medication. Findings are equivocal for acute cholecystitis and if clinical concern remains, HIDA scan can be performed. ACT 112: Negative or not required by law. Electronically signed by: Terrell Roca M.D. 02/28/2023 5:04 PM MDM Narrative 37-year-old female presents with 2 days of vomiting that turned into multiple episodes of green nonbloody diarrhea, fever of 101 yesterday, and epigastric and right upper quadrant abdominal pain that worsened last night when she tried to eat and has become more constant in nature. On exam she is mildly ill-appearing but certainly nontoxic. She is tachycardic with a heart rate of 119 initially, and oral mucous membranes are dry consistent with some dehydration. She is significantly tender in the epigastric, right upper quadrants with a positive Patino sign, and also has some mild discomfort in the right lower quadrant. An IV was inserted and labs were obtained. IV fluids were administered. She was given morphine for pain control. Declined anything for nausea. Stool bio fire and C. difficile testing was ordered. Decided to obtain a CT of the abdomen and pelvis to evaluate for the differential as above Labs: There is no leukocytosis or anemia. Minimal hyponatremia at 133 likely secondary to lack of oral intake and possible losses, no transaminitis. Renal function is normal. Bilirubin is normal. Lipase is also normal. Urine is negative. Urine with trace ketones, otherwise negative. Stool bio fire is positive for astrovirus. CT imaging shows evidence for nonspecific proctocolitis. This could clinically correlate with the astrovirus. Her gallbladder was also markedly distended though no definitive CT evidence of acute cholecystitis. Right upper quadrant ultrasound was recommended. Right upper quadrant ultrasound also demonstrated significant distention of the gallbladder with sludge. There was tenderness over the gallbladder region. Patient received a total of 1.5 L IV fluids while in the emergency department. Her heart rate trended into the low 100s. She did require an additional dose of morphine for pain control. I reevaluated her abdomen and she remained significantly tender in the right upper quadrant. Given her persistent pain requiring multiple doses of morphine, tachycardia, and abnormal gallbladder findings on CT and ultrasound, I discussed the case with Dr. López (general surgery) who agreed to admit the patient overnight for observation with plan for HIDA scan in the morning. He is comfortable with the patient receiving antibiotics. Rocephin was ordered. Impression Abdominal pain, RUQ, Abnormal gallbladder ultrasound, Abnormal CT scan, gallbladder, Astrovirus gastroenteritis Discharge Plan Visit Data Chief Complaint: Flu Like Symptoms Stated Complaint: STOMACH BUG,VOMITING,NAUSEA, ED Provider: Roly Ibarra ED Midlevel Provider: Yobani Garcia Discharge Problem: Abdominal pain, RUQ, Abnormal gallbladder ultrasound, Abnormal CT scan, gallbladder, Astrovirus gastroenteritis Patient Disposition: Admitted As Inpatient Condition: Fair Discharge Instructions Interventions: ED Discharge Assessment Last Done: 02/28/23 20:53
[2023-02-28 14:23] LABS: Basophils # (auto) 0.01 K/uL (0-0.2); Basophils % (auto) 0.2 %; Eosinophils # (auto) 0.12 K/uL (0-0.50); Eosinophils % (auto) 2.4 %; Hematocrit (blood only) 40.8 % (37.0-47.0); Hemoglobin 13.7 g/dl (12.0-16.0); Immature Granulocytes # (auto) 0.02 K/uL (0.01-0.20); Immature Granulocytes % (auto) 0.4 %; Lymphocytes % (auto) 34.7 %; Mean Corpuscular Hemoglobin 28.2 pg (25.0-34.0); Mean Corpuscular Hgb Conc 33.6 g/dL (32.0-36.0); Mean Corpuscular Volume 84.1 fL (80.0-100.0); Mean Platelet Volume 9.7 fL (9.4-12.4); Monocytes % (auto) 10.2 %; Neutrophils # (auto) 2.55 K/uL (1.40-6.50); Neutrophils % (auto) 52.1 %; Platelet Count 198 K/uL (130-400); RDW Coefficient of Variation 13.7 % (11.5-14.5); RDW Standard Deviation 42.4 fL (36.4-46.3); Red Blood Count 4.85 M/uL (4.20-5.40)
[2023-02-28 14:40] LABS: Albumin Globulin Ratio 1.1 (0.9-2); Albumin Level 4.1 gm/dl (3.4-5.0); BUN Creatinine Ratio 13.2 (10-20); Bilirubin,Total 0.3 mg/dl (0.2-1.0); Calcium 8.9 mg/dl (8.6-10.3); Creatinine Clr Calc Pharmacy 81.7 ml/min; Est GFR (African American) 117.8 ml/min; Est GFR (Non-African American) 101.6 ml/min; Globulin 3.9 gm/dl (2.5-4.0); Potassium 3.5 mmol/L (3.5-5.1)
[2023-02-28 14:59] LABS: Appearance Urine Clear (Clear); Bilirubin Urine Negative (Negative); Blood Urine Negative (Negative); Color Urine Yellow; Glucose Urine UA Negative (Negative); Ketones Urine Trace (Negative); Leukocyte Esterase Urine Negative (Negative); Nitrite Urine Negative (Negative); Protein Urine Negative (Negative); Specific Gravity Urine 1.008 (1.000-1.030); Urobilinogen Urine Negative (Negative); pH Urine 6.5 (4.5-7.5)
[2023-02-28] MEDS ORDERED: OPTIRAY 320 100ml IV ONE (15:37)
--- NOTE | 2023-02-28 15:53 | CT Scan Report ---
CT SCAN OF THE ABDOMEN AND PELVIS WITH IV CONTRAST CLINICAL HISTORY: Vomiting and diarrhea. Right-sided abdominal pain. COMPARISON STUDY: No priors. TECHNIQUE: Following the IV administration of 92 cc of Optiray 320, CT scan of the abdomen and pelvi s is performed from the lung bases to the proximal femora. Images are reviewed in the axial, sagittal , and coronal planes. IV contrast was administered without complication. A dose lowering technique wa s utilized adhering to the principles of ALARA. CT DOSE: 423.89 mGy.cm FINDINGS: Lung bases: The heart is normal in size and without pericardial effusion. The lung bases are clear. Liver: The contrast-enhanced liver is normal in size, contour, and attenuation. There is no intrahepa tic biliary ductal dilatation. The hepatic veins and portal veins are patent. Gallbladder: Gallbladder is markedly distended. There is no CT evidence of gallbladder wall thickenin g or surrounding inflammation.. Spleen: Normal in size and attenuation. Pancreas: Unremarkable. Adrenal glands: Unremarkable. Kidneys: The contrast enhanced kidneys are normal in size and without hydronephrosis. The kidneys enh ance symmetrically. Foci of cortical scarring are seen throughout the right kidney. A punctate nonobs tructing calculus is seen on the right. Abdominal vasculature: The abdominal aorta is normal in course and caliber. Bowel: Liquid stool seen throughout the colon, and the colonic mucosa appears mildly thickened and hy peremic. This is greatest in the rectosigmoid. No bowel obstruction is seen. The appendix is not celestino ntified and reported surgically absent. Peritoneum: There is no intraperitoneal free air or abdominal ascites. There is a small fat-containin g umbilical hernia. Lymphadenopathy: None. Pelvic viscera: The bladder is distended but otherwise normal in appearance. The uterus and adnexa ar e normal as visualized. Skeletal structures: No lytic or blastic lesions are seen. There are bilateral pars defects at L5. IMPRESSION: 1. Findings suggest a nonspecific proctocolitis. Correlate clinically. 2. The gallbladder is markedly distended. There is no CT evidence of gallbladder wall thickening or s urrounding inflammation to confirm acute cholecystitis. Correlate with clinical and laboratory findin gs. Consider a right upper quadrant ultrasound for further assessment. 3. Left-sided nephrolithiasis. 4. Additional findings as above. ACT 112: Negative or not required by law. Electronically signed by: Travis Perez M.D. 02/28/2023 3:52 PM
[2023-02-28] MEDS ORDERED: SODIUM CHLORIDE 0.9% 1000ML 1,000 ML IV ONE (16:05)
[2023-02-28 16:41] LABS: Adenovirus F 40/41 PCR Not Detected (NotDetected); Campylobacter PCR Not Detected (NotDetected); Cryptosporidium PCR Not Detected (NotDetected); Cyclospora cayetanensis PCR Not Detected (NotDetected); Entamoeba histolytica PCR Not Detected (NotDetected); Enteroaggregative E.coli(EAEC) Not Detected (NotDetected); Enteropathogenic E.coli (EPEC) Not Detected (NotDetected); Enterotoxigenic E.coli (ETEC) Not Detected (NotDetected); Giardia lamblia PCR Not Detected (NotDetected); Norovirus GI/GII PCR Not Detected (NotDetected); Plesiomonas shigelloides PCR Not Detected (NotDetected); Rotavirus A PCR Not Detected (NotDetected); Salmonella PCR Not Detected (NotDetected); Sapovirus PCR Not Detected (NotDetected); Shiga-like Toxin E.coli (STEC) Not Detected (NotDetected); Shigella/Enteroinvasive E.coli Not Detected (NotDetected); Vibrio cholerae PCR Not Detected (NotDetected); Vibrio species PCR Not Detected (NotDetected); Yersinia enterocolitica PCR Not Detected (NotDetected)
[2023-02-28 16:55] LABS: Astrovirus PCR DETECTED (NotDetected)
--- NOTE | 2023-02-28 17:05 | Ultrasound Report ---
US gallbladder CLINICAL HISTORY: diarrhea vomiting fever RUQ pain/+patino TECHNIQUE: Multiple real-time sonographic images of the right upper quadrant were obtained. Comparison: Comparison is made to CT abdomen pelvis 02/28/2023 FINDINGS: The liver is diffusely homogenous with normal contour and echogenicity. No focal mass lesions are see n. No intrahepatic ductal dilatation is seen. Gallbladder is distended with sludge. The gallbladd er wall measures 2 mm. Patino's sign cannot be assessed as the patient received pain medication. Emily ent reports mild tenderness over the gallbladder area. The common duct measures 0.3 cm in diameter at the level of the hepatic artery. The pancreas is not well visualized secondary to overlying bowel g as. The right kidney shows normal echogenicity, cortical thickness and renal contour. The right kidney sh ows no evidence of hydronephrosis or mass. IMPRESSION: No gallbladder wall thickening is seen despite distention with sludge. There is tenderness over the g allbladder although evaluation for Patino's sign is limited by pain medication. Findings are equivoca l for acute cholecystitis and if clinical concern remains, HIDA scan can be performed. ACT 112: Negative or not required by law. Electronically signed by: Terrell Roca M.D. 02/28/2023 5:04 PM
[2023-02-28] MEDS ORDERED: cefTRIAXone SODIUM 2,000 MG/70 ML BAG IV STA (19:33)
--- NOTE | 2023-02-28 19:55 | History & Physical Report ---
Date of Service February 28, 2023 Assessment & Plan (1) Abdominal pain, RUQ: Plan: Due to the patient's clinical presentation and findings on imaging she will be admitted to the hospital proceeding as follows: Analgesia be provided Antiemetics we provided We will hydrate with IV fluids We will follow serial labs For the present time we will make the patient n.p.o. but will allow occasional ice chips We will maintain the patient on antibiotics that have been initiated by the treating clinician in the emergency department in the form of Rocephin The cause of patient's abdominal pain may be biliary in nature. As the studies that have been performed thus far are equivocal for acute cholecystitis we will obtain a HIDA scan and if the HIDA scan is positive for acute cholecystitis we will consider proceeding with cholecystectomy. The cause of her abdominal pain may also be proctocolitis as the patient is noted to have stool positive for astrovirus. Supportive care with hydration measures will be employed for this issue. Additional recommendations be forthcoming based on her clinical course as unfolds and results of her pending HIDA scan SCDs to be used for DVT prevention, no chemical means until is ascertain whether or not the patient would require procedural intervention She will be a level 1 full code History of Present Illness Chief Complaint: Abdominal pain Primary Care Provider: Laila Rivas MD This is a 37-year-old female who presented to the emergency department secondary to abdominal pain. Patient notes that her symptoms began approximately 48 hours ago when she has some generalized abdominal pain which is now localized to the right upper quadrant. Patient notes that the pain radiates somewhat to her back. In addition she has had diarrhea but denies any blood in her bowel movements or melena. She has had a fever of 101.1. She notes her symptoms are alleviated somewhat with Tylenol and is worse after eating. She does note that after she eats she immediately gets worsening of her symptoms. She notes no close contacts have been ill. She notes over the past several weeks that she has not had any postprandial pain. She does have prior abdominal surgeries in the form of an appendectomy and a . She notes that she is also treated for GERD as well as eosinophilic esophagitis. The patient's most recent EGD was performed in December of this year which showed the patient had findings consistent with eosinophilic esophagitis as well as gastritis. She did have biopsies at the time of this EGD which were negative for malignancy and negative for H. pylori. Movement the patient has had labs and imaging which I independent reviewed. CT scan of the abdomen pelvis showed the patient had findings suggesting a nonspecific proctocolitis--there was liquid stool seen throughout the colon with the colonic mucosa appearing thickened and hyperemic. There is no evidence of bowel obstruction. On this study the patient's gallbladder appeared markedly distended but there is no CT evidence of gallbladder wall thickening or surrounding inflammation a gallbladder ultrasound was subsequent performed that showed no gallbladder wall thickening but the gallbladder was distended with sludge. These findings were considered equivocal for acute cholecystitis. Labs include a CBC her white blood cell count, hemoglobin, hematocrit, and platelet count were normal. Chemistry profile showed sodium was 133 with a normal potassium. BUN and creatinine were both within normal range. There is no elevation of patient's bilirubin, transaminases, alkaline phosphatase, or lipase. Urinalysis was not indicative of infection. The patient did have stool studies sent which were negative for all substances tested except it was positive for astrovirus. At the time of my interview the patient was resting comfortably in bed and she was in no distress. 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) #9 tabs omeprazole 20 mg capsule,delayed 20 mg PO BID #180 caps 05/01/22 02/28/23 Rx release sucralfate 1 gram tablet 1 g PO QID PRN STOMACH IRRITATION 07/13/22 02/28/23 History famotidine 20 mg tablet 20 mg PO BID #180 tabs 10/25/22 02/28/23 Rx miscellaneous medical supply #60 doses 11/19/22 01/08/23 Rx budesonide 9 mg capsule,extended 0 mg PO BID 01/01/23 02/28/23 History release drospirenone 3 mg-ethinyl 1 tab PO QPM 01/01/23 02/28/23 History estradiol 0.02 mg tablet lorazepam 0.5 mg tablet 0.5 - 1 mg PO UD PRN FLIGHT ANXIETY 01/01/23 02/28/23 History sertraline 100 mg tablet 150 mg PO QAM 01/01/23 02/28/23 History trazodone 50 mg tablet 50 - 100 mg PO HS PRN Sleep 01/01/23 02/28/23 History Past Med/Surg History Medical History Anxiety Chronic migraine Eosinophilic esophagitis Esophageal stricture GERD (gastroesophageal reflux disease) History of COVID-19 04/2022- FEVER, COUGH, RUNNY NOSE, JOINT PAIN, BACK PAIN, NO HOSPITALIZATION, NO CURRENT ISSUES HLA B27 (HLA B27 positive) Hx of gastric ulcer Seronegative polyarthritis Surgical History Family history of reaction to anesthesia MOTHER-NAUSEA History of appendectomy History of section X 1 History of colonoscopy History of esophagogastroduodenoscopy (EGD) History of tooth extraction wisdom teeth Family History Aunt Skin cancer Uncle Skin cancer Father Eosinophilic esophagitis Other Family history of diabetes mellitus in father Denies family history of Ovarian cancer Prostate cancer Myocardial infarction Breast cancer Colorectal cancer Social History Smoking Status: Never smoker Second Hand Exposure: No; Do You Dip or Chew Tobacco: No; Tobacco Cessation Education Requested by Patient: No Hx Alcohol Use: Yes Alcohol type: wine Hx Substance Use: No Preferred Language: Sinhala Communication Ability: Effective Visual Impairment: No Limitations Hearing Ability: Normal Senior Writer Required: No Beliefs That Will Affect Care: None marital status: Current Living Situation: Spouse and Family Current Living Situation Comment: and children current occupational status: employed 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 Other Information That Helps Us Care for You: No Feels Safe at Home: Yes Safety Concerns: Feels Safe At This Time Childhood Exposure to Second-Hand Smoke: No Diet: regular caffeine: Yes Dental Care, Regularly: Yes Physical Activity Frequency: 3-4 Times per Week Seatbelt Use: always Sunscreen Use: Yes Assistive Devices: None Review of Systems Constitutional: + fever; no chills Ear, Nose, Mouth, Throat: no hearing loss Respiratory: no cough and no dyspnea Cardiovascular: no chest pain Gastrointestinal: as per Subjective / HPI Genitourinary: no dysuria Musculoskeletal: + back pain (Radiating from abdomen) Integumentary: no rash Neurologic: no localized weakness Physical Exam Constitutional: WD/WN, vitals as above Eyes: No scleral jaundice ENMT: Ears: no hearing impairment and no external ear abnormality No sublingual jaundice Neck: trachea midline Respiratory: normal respiratory effort, lungs clear to auscultation Cardiovascular: Rate/Rhythm: regular rate and regular rhythm Vessels: dorsalis pedis pulses present and radial pulses present Gastrointestinal (Abdomen): Abdomen is soft, nondistended, and nonrigid. Bowel sounds are present. There is no rebound tenderness or guarding but patient did have marked tenderness in the right upper quadrant with moderate palpation. Musculoskeletal: No calf tenderness, no lower extremity edema Skin: no jaundice Neurologic: moves all extremities Results & Data Results & Data Vital Signs (Past 12 Hours) Vital Signs Temp Pulse Pulse Resp BP BP Pulse Ox 02/28/23 16:06 96 H 02/28/23 15:52 100 H 18 125/87 100 02/28/23 14:16 18 98 02/28/23 13:19 36.2 C L 119 H 18 141/92 H 98 O2 Del Method 02/28/23 16:06 02/28/23 15:52 Room Air 02/28/23 14:16 Room Air 02/28/23 13:19 Supervising Physician Co-Signing Physician Notes I personally saw and evaluated the patient with Gerald Limon PA-C and agree with the assessment and plan. 37-year-old female with stool positive astrovirus with colitis and a distended gallbladder with sludge Due to the patient's ongoing pain, she will be admitted to the surgical service and will order HIDA scan for the morning We will keep her n.p.o. give her IV fluids started on antibiotics PG Care Time/CCT Total # of Minutes Spent Total Time Spent with Patient: Total time spent is greater than 50% in coordination of care (as documented) at patient's floor/unit and/or counseling patient: Coding Level of Care Code 87120 INT INP/OBS CARE 3/75MIN Diagnoses Abdominal pain, RUQ R10.11
[2023-02-28] MEDS ORDERED: ONDANSETRON INJ 2 MG/ML 2 ML VIAL IV PRN (19:56)
[2023-02-28] MEDS: LACTATED RINGER'S 1,000 ML IV SCH (21:36)
[2023-02-28] MEDS: ACETAMINOPHEN 1,000 MG/100 ML VIAL IV PRN (21:36)
[2023-02-28] MEDS ORDERED: RIZATRIPTAN BENZOATE MLT 10 MG TAB PO PRN (21:40)
[2023-03-01] MEDS: LACTATED RINGER'S 1,000 ML IV SCH (05:25)
[2023-03-01] MEDS: ACETAMINOPHEN 1,000 MG/100 ML VIAL IV PRN (05:25)
[2023-03-01 06:28] LABS: Albumin Globulin Ratio 1.2 (0.9-2); Albumin Level 3.1 gm/dl (3.4-5.0); Bilirubin,Total 0.2 mg/dl (0.2-1.0); Calcium 7.6 mg/dl (8.6-10.3); Creatinine Clr Calc Pharmacy 117.2 ml/min; Est GFR (African American) 142.6 ml/min; Globulin 2.6 gm/dl (2.5-4.0); Potassium 3.3 mmol/L (3.5-5.1); Total Protein 5.7 gm/dl (6.0-8.3)
[2023-03-01 07:10] LABS: Basophils # (auto) 0.01 K/uL (0-0.2); Basophils % (auto) 0.3 %; Eosinophils # (auto) 0.13 K/uL (0-0.50); Eosinophils % (auto) 3.6 %; Hemoglobin 10.5 g/dl (12.0-16.0); Immature Granulocytes # (auto) 0.01 K/uL (0.01-0.20); Immature Granulocytes % (auto) 0.3 %; Lymphocytes # (auto) 1.57 K/uL (1.2-3.4); Lymphocytes % (auto) 43.9 %; Mean Corpuscular Hemoglobin 28.6 pg (25.0-34.0); Mean Corpuscular Hgb Conc 33.9 g/dL (32.0-36.0); Mean Corpuscular Volume 84.5 fL (80.0-100.0); Monocytes # (auto) 0.51 K/uL (0.11-0.59); Monocytes % (auto) 14.2 %; Neutrophils # (auto) 1.35 K/uL (1.40-6.50); Neutrophils % (auto) 37.7 %; Platelet Count 148 K/uL (130-400); RDW Coefficient of Variation 13.8 % (11.5-14.5); RDW Standard Deviation 42.6 fL (36.4-46.3); Red Blood Count 3.67 M/uL (4.20-5.40); White Blood Count 3.58 K/ul (4.8-10.8)
[2023-03-01] MEDS: POTASSIUM CHLORIDE / WTR 10 MEQ/100 ML PLCT IV SCH ×2 (08:08→09:28)
[2023-03-01] MEDS ORDERED: SERTRALINE HCL 50 MG TABLET PO SCH (09:00)
--- NOTE | 2023-03-01 09:05 | Surgery Progress Note ---
Date of Service March 01, 2023 Assessment & Plan (1) Abdominal pain, RUQ: Plan: Patient here with RUQ abdominal pain and diarrhea CT showed concern for proctocolitis and a distended gallbladder without evidence of acute wilver. RUQ US showed no GB wall thickening with + sludge Stool studies returned + for astrovirus She is feeling a bit better today than yesterday, but still having some mild RUQ pain Will obtain HIDA to rule out cholecystitis, if negative will tx her with supportive care. If + may consider lap wilver this admission Will check on after HIDA scan and make further recs at that time [facility] covering wknd if any questions/concerns (2) Astrovirus gastroenteritis: Admission and Anticipated Discharge Date Admission Date: February 28, 2023 Supervising Physician Co-Signing Physician Notes I personally saw and evaluated the patient with Sylwia Lobato PA-C and agree with the assessment and plan. 37-year-old female with stool positive astrovirus with colitis and a distended gallbladder with sludge Patient is feeling a little better today She is getting her HIDA scan this morning, we will follow-up these results The results will dictate her further treatment plan Subjective Patient says she is feeling better than when she came in. Reports abdominal pain a 3-4/10 currently. Controlled with tylenol. No nausea/vomiting. Physical Exam Physical Exam: awake/alert, no distress Gastrointestinal (Abdomen): Inspection/Auscultation: abdomen not distended Percussion/Palpation: + abdomen tender (rom RUQ discomfort to palpation) and abdomen soft Results & Data Vital Signs (Past 12 Hours) Vital Signs Temp Pulse Resp BP BP Pulse Ox O2 Del Method 03/01/23 07:31 36.4 C L 94 H 16 116/76 99 Room Air 02/28/23 21:35 36.7 C 98 H 18 132/85 99 Room Air PG Care Time/CCT Total # of Minutes Spent Total Time Spent with Patient: Total time spent is greater than 50% in coordination of care (as documented) at patient's floor/unit and/or counseling patient: Coding Level of Care Code 10516 SUB INP/OBS CARE 1/25MIN Diagnoses Abdominal pain, RUQ R10.11 Astrovirus gastroenteritis A08.32
--- NOTE | 2023-03-01 09:55 | Anesthesiology Consultation ---
Date of Service March 01, 2023 Assessment & Plan (1) Encounter for pre-operative examination: Chart Review Chart Review: Acceptable Risk for Surgery and Patient NOT seen in Pre Admission Testing Consults Requested none History Surgery Operation Date: 03/01/23 08:20 Proposed Procedures p Laparoscopic Cholecystectomy versus Open Cholecystectomy - Robbin López, Height/Weight Height: 5 ft 2 in Weight: 54.4 kg Allergies Allergy/AdvReac Type Severity Reaction Status Date / Time nickel Allergy Unknown Rash Verified 02/28/23 17:15 Medications Home Medications Medication Instructions Recorded Confirmed Last Taken multivitamin 1 tab PO QPM 06/11/18 02/28/23 02/27/23 etanercept 25 mg (1 mL) 50 mg subcut .Thursdays02/23/20 02/28/23 02/21/23 subcutaneous powder for solution (Enbrel) rizatriptan 10 mg disintegrating 10 mg PO Q2H PRN migraine headache 09/16/20 02/28/23 Unknown tablet (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) #9 tabs omeprazole 20 mg capsule,delayed 20 mg PO BID #180 caps 05/01/22 02/28/23 02/28/23 release sucralfate 1 gram tablet 1 g PO QID PRN STOMACH IRRITATION 07/13/22 02/28/23 02/28/23 famotidine 20 mg tablet 20 mg PO BID #180 tabs 10/25/22 02/28/23 02/28/23 miscellaneous medical supply #60 doses 11/19/22 01/08/23 Unknown budesonide 9 mg capsule,extended 0 mg PO BID 01/01/23 02/28/23 02/27/23 release drospirenone 3 mg-ethinyl 1 tab PO QPM 01/01/23 02/28/23 02/27/23 estradiol 0.02 mg tablet lorazepam 0.5 mg tablet 0.5 - 1 mg PO UD PRN FLIGHT ANXIETY 01/01/23 02/28/23 Unknown sertraline 100 mg tablet 150 mg PO QAM 01/01/23 02/28/23 02/27/23 trazodone 50 mg tablet 50 - 100 mg PO HS PRN Sleep 01/01/23 02/28/23 01/07/23 Active Medications Generic Name Dose Route Start Last Admin Trade Name Freq PRN Reason Stop Dose Admin Lactated Ringer's 1,000 mls @ 125 mls/hr 02/28/23 20:00 03/01/23 05:25 Lr IV 03/30/23 19:59 125 mls/hr .Q8H SUZANNE Administration Acetaminophen 1,000 mg in 100 mls @ 400 mls/hr 02/28/23 19:56 03/01/23 05:40 Ofirmev IV 03/03/23 19:55 Infused Q8H PRN Infusion Pain Potassium Chloride 10 meq in 100 mls @ 100 mls/hr 03/01/23 08:00 03/01/23 09:28 K Harpreet / Wtr IV 03/01/23 09:59 100 mls/hr Q1H SUZANNE Administration Miscellaneous 1 each 02/28/23 21:45 03/01/23 08:03 Budesonide~Order Awaiting Action N/A 03/30/23 21:44 Not Given QS SUZANNE Miscellaneous 1 each 02/28/23 21:45 03/01/23 08:03 Oral Contraceptive~Order Awaiting Action N/A 03/30/23 21:44 Not Given QS SUZANNE Miscellaneous 1 each 02/28/23 22:00 03/01/23 08:03 Enbrel~Order Awaiting Action N/A 03/30/23 21:59 Not Given QS SUZANNE Morphine Sulfate 2 mg 02/28/23 13:47 02/28/23 17:26 Morphine Sulfate 2 Mg/Ml Carp IV 03/14/23 13:46 2 mg NOW PRN Administration Pain Sertraline HCl 150 mg 03/01/23 09:00 03/01/23 08:04 Sertraline Hcl 50 Mg Tablet PO 03/31/23 08:59 150 mg QAM SUZANNE Administration Past Medical History Medical History Anxiety Chronic migraine Eosinophilic esophagitis Esophageal stricture GERD (gastroesophageal reflux disease) History of COVID-19 04/2022- FEVER, COUGH, RUNNY NOSE, JOINT PAIN, BACK PAIN, NO HOSPITALIZATION, NO CURRENT ISSUES HLA B27 (HLA B27 positive) Hx of gastric ulcer Seronegative polyarthritis Past Family History Family History Aunt Skin cancer Uncle Skin cancer Father Eosinophilic esophagitis Other Family history of diabetes mellitus in father Denies family history of Ovarian cancer Prostate cancer Myocardial infarction Breast cancer Colorectal cancer Past Surgical History Surgical History Family history of reaction to anesthesia MOTHER-NAUSEA History of appendectomy History of section X 1 History of colonoscopy History of esophagogastroduodenoscopy (EGD) History of tooth extraction wisdom teeth Social History Smoking Status: Never smoker Do You Dip or Chew Tobacco: No Hx Alcohol Use: Yes Alcohol type: wine alcohol intake frequency: holidays/special occasions only Hx Substance Use: No substance use type: does not use Physical Exam Vital Signs Last Vital Signs Temp 97.5 F L 03/01/23 07:31 Pulse 94 H 03/01/23 07:31 Resp 16 03/01/23 07:31 BP 116/76 03/01/23 07:31 Pulse Ox 99 03/01/23 07:31 O2 Del Method Room Air 03/01/23 07:31 Testing Laboratory Results 03/01/23 05:48 03/01/23 05:48 Urine Color Yellow 02/28/23 14:00 Urine Appearance Clear (Clear) 02/28/23 14:00 Urine pH 6.5 (4.5-7.5) 02/28/23 14:00 Ur Specific [place] 1.008 (1.000-1.030) 02/28/23 14:00 Urine Protein Negative (Negative) 02/28/23 14:00 Urine Glucose (UA) Negative (Negative) 02/28/23 14:00 Urine Ketones Trace (Negative) H 02/28/23 14:00 Urine Nitrite Negative (Negative) 02/28/23 14:00 Ur Leukocyte Esterase Negative (Negative) 02/28/23 14:00 02/28/23 14:05 POC Ur Test Cancelled
[2023-03-01] MEDS ORDERED: SODIUM CHLORIDE 0.9% IV ONE (10:45)
[2023-03-01] MEDS ORDERED: SINCALIDE IV ONE (10:45)
[2023-03-01] MEDS ORDERED: PANTOprazole 40 MG in SYRINGE 0 ML IV SCH (11:00)
--- NOTE | 2023-03-01 12:03 | Nuclear Medicine Report ---
NUCLEAR HEPATOBILIARY SCAN CLINICAL HISTORY: Right upper quadrant abdominal pain. COMPARISON STUDY: Abdominal ultrasound dated 02/28/2023. TECHNIQUE: Dynamic images of the liver and anterior abdomen were obtained every 5 minutes for a total of 60 minutes following the IV administration of 5.1 mCi of technetium 99m Mebrofenin. FINDINGS: The hepatobiliary scan shows prompt and homogeneous hepatic uptake. There is visualized act ivity within the intra and extrahepatic biliary tree at 10 minutes, and within the gallbladder at 45 minutes. There is normal biliary to bowel transit, with small bowel visualized by 20 minutes. IMPRESSION: Normal nuclear hepatobiliary scan. There is no scintigraphic evidence of cholecystitis. ACT 112: Negative or not required by law. Electronically signed by: Travis Perez M.D. 03/01/2023 12:01 PM
[2023-03-01] MEDS ORDERED: cefTRIAXone SODIUM 1,000 MG in DEXTROSE 5% AD-VAN 50 ML IV SCH (21:00)
== END 2023-03-01 13:22 | disposition home or self-care (01) | DRG 392 ==
LOC: ED 13:15 → 3N 20:00